=== PATIENT | female | born 1935 | race Two or more races ===

== ENCOUNTER → 2019-10-12 13:06 | Outpatient (CLI) | payer OTHER ==
[~2019-10-12 13:06] MED LIST: ALTACE10 MG PO; LYRICA50 MG PO; TENORMIN50 MG PO; ZOCOR20 MG PO
== END | disposition home or self-care (01) ==
LOC: RAD 13:06
DX: M19.041 Primary osteoarthritis, right hand (principal); M19.031 Primary osteoarthritis, right wrist

== ENCOUNTER 2024-05-02 18:04 | Emergency (ER) | payer OTHER ==
[~2024-05-02] VITALS: Ht 162.6 cm; Wt 70.3 kg
[2024-05-02 20:21] LABS: HEMATOCRIT 41.1 % (36.0-45.00); HEMOGLOBIN 13.9 g/dL (12.0-15.00); MEAN CELL VOLUME 90.3 fL (80.00-100.00); MEAN CORPUSCULAR HEMOGLOBIN 30.6 pg (27.00-32.0); MEAN CORPUSCULAR HGB CONC 33.9 g/dl (32.0-36.0); PLATELET COUNT 196 K/uL (150-450); RED BLOOD COUNT 4.55 M/uL (4.00-6.00); RED CELL DISTRIBUTION WIDTH 14.3 % (11.5-14.5)
[2024-05-02 20:44] LABS: ALBUMIN 3.7 gm/dL (3.4-5.0); BILIRUBIN TOTAL 0.49 mg/dL (0.3-1.2); CALCIUM 9.2 mg/dL (8.5-10.1); GFR 52.45; GLOBULINA 4.4 G/DL (2.4-3.5); POTASSIUM 3.96 mEq/L (3.5-5.1); TOTAL PROTEIN 8.1 gm/dL (6.4-8.2)
[2024-05-02 20:51] LABS: URINE APPEARANCE Clear; URINE BILIRRUBIN Negative (NEGATIVE); URINE BLOOD Negative; URINE COLOR Yellow; URINE GLUCOSE Negative (NEGATIVE); URINE KETONE Trace (NEGATIVE); URINE LEUKOCYTE Trace; URINE NITRATE Negative; URINE PROTEIN 30 (NEGATIVE); URINE UROBILINOGEN 0.2 E.U./dl
[2024-05-02 20:54] LABS: URINE BACTERIA 437.1 uL (0.0-1933); URINE RBC 5.4 uL (0.0-20.8); URINE WBC 32.2 uL (0.0-23.2)
[2024-05-02] MEDS ORDERED: MACROBID 100 M100 MG PO (22:53)
== END 2024-05-02 23:32 | disposition home or self-care (01) ==
LOC: ER 18:06
DX: R53.81 Other malaise (principal); N39.0 Urinary tract infection, site not specified; Z20.822 Contact with and (suspected) exposure to COVID-19; Z88.1 Allergy status to other antibiotic agents